=== PATIENT | female | born 1960 | race Two or more races ===

== ENCOUNTER → 2025-02-08 | Emergency (ER) | payer MEDICARE, OTHER ==
[~2025-02-08] VITALS: Ht 147.3 cm; Wt 59.0 kg
[2025-02-08 16:19] VITALS: O2SAT 94
== END | disposition home or self-care (01) ==
LOC: ER 16:12
DX: S00.03XA Contusion of scalp, initial encounter (principal); E11.9 Type 2 diabetes mellitus without complications; Q90.9 Down syndrome, unspecified; W18.30XA Fall on same level, unspecified, initial encounter; Y93.89 Activity, other specified; Y92.89 Other specified places as the place of occurrence of the external cause; Y99.8 Other external cause status
CPT/HCPCS: 70450; A4606; A4663